=== PATIENT | male | born 1940 | race Caucasian/White ===

== ENCOUNTER → 2019-08-30 | Outpatient (CLI) | payer OTHER ==
[~2019-08-30] VITALS: Ht 175.3 cm; Wt 86.2 kg
[~2019-08-30] MED LIST: ASPIRIN81 M2 PO; TIMOLOL GL0.5 %/5 M1 OPHTHALMIC
[2019-08-30 09:46] LABS: ABSOLUTE NEUTROPHILS 2.6 thou/uL (1.4-8.2); BASOPHILS 0.5 % (0.0-2.0); EOSINOPHILS 5.2 % (0.0-3.0); HEMATOCRIT 42.4 % (42.0-52.0); HEMOGLOBIN 14.4 gm/dL (14.0-18.0); MCH 33.1 pg (26.0-34.0); MCHC 33.9 g/dL (28.0-37.0); MCV 97.7 fL (80.0-100.0); MONOCYTES 11.9 % (1.0-8.0); PLATELET COUNT 157 thou/uL (150-400); POLYS 53.4 % (36.0-66.0); RBC 4.34 mil/uL (4.50-6.00); RDW 14.1 % (10.5-14.5); WBC 4.9 thou/uL (4.0-11.0)
[2019-08-30 09:53] LABS: CALCIUM 8.3 mg/dL (8.5-10.1); POTASSIUM 3.7 mmol/L (3.5-5.1)
[2019-08-30 09:59] LABS: TOTAL BILIRUBIN 0.9 mg/dL (0.2-1.0); TOTAL PROTEIN 6.5 g/dL (6.4-8.2)
--- NOTE | 2019-08-30 10:51 | P ---
[facility] [place] [address] PROCEDURE REPORT Name: JACKLYN JOEL SR Room #: REG [facility]#: [id number] Admission: 08/30/19 Attend Phys: Nakul Tanner Discharge: Date of : 42 Report #: [id number] THIS REPORT FOR: cc: Elsie Barroso MD,Nakul Bejarano MD, MD ~ CC: Nakul Barroso MD DATE OF SERVICE: 08/30/2019 PROCEDURE PERFORMED: Colonoscopy with polypectomies. HISTORY OF PRESENT ILLNESS: The patient is a 78-year-old male who presents today for routine screening colonoscopy. Denies any symptoms. Last colonoscopy was approximately 8-10 years ago. No family history of colon cancer. DESCRIPTION OF PROCEDURE: The risks and benefits of the procedure were explained to the patient, those risks including but not limited to bleeding, perforation and the risk of sedation. He understood these risks and gave informed consent. Sedation was given using propofol per Anesthesia. Next, a digital rectal exam was initially performed, which was normal. Next, using a standard Olympus colonoscope, the scope was placed in the patient's anus and advanced under direct vision to the cecum. The overall prep was excellent. In the cecum, there was a 4 mm sessile polyp. This was removed with cold forceps, otherwise normal. The ileocecal valve was normal. The terminal ileum was intubated and normal in appearance. Ascending, transverse and descending colon were normal. Multiple diverticula were noted in the sigmoid colon, no evidence of inflammation. Also noted was an 8 mm pedunculated polyp in the sigmoid colon. This was removed by snare cautery. The rectal mucosa was normal. On retroflexion, small nonbleeding internal hemorrhoids were noted. The scope was then withdrawn and the procedure terminated. The patient tolerated the procedure well. IMPRESSION: 1. Two colonic polyps. 2. Sigmoid diverticulosis. 3. Internal hemorrhoids. 4. Otherwise, normal colonoscopy. RECOMMENDATIONS: 1. Await biopsy results. 2. Consider repeat colonoscopy in [address] [address] PROCEDURE REPORT Name: WISAMJACKLYN Melissa Room #: REG [facility] Marquez#: [id number] Admission: 08/30/19 Attend Phys: Nakul Tanner Discharge: Date of : 42 Report #: [id number] Thank you for allowing me to participate in his care. <ELECTRONICALLY SIGNED> By: Nakul Griggs MD 08/30/19 1051 0858 0906 Nakul Griggs MD /nt
--- NOTE | 2019-08-30 14:31 | EKG ---
[facility] [place] [address] [place] [address] ELECTROCARDIOGRAM REPORT Name: JACKLYN JOEL SR Room #: REG [facility].#: [id number] Admission: 08/30/19 Attend Phys: Nakul Tanner Discharge: Date of : 42 Report #: [id number] THIS REPORT FOR: cc: Elsie Barroso MD, Stany A. MD Couchonnal, Luis F. MD ~ THIS REPORT FOR: //name// [facility] Test Date: 2019-08-30 Test Time: 09:06:07 Pat Name: JACKLYN JOEL Department: Room: Gender: Raw Juice Weigher: RANJAN : 1940 Requested By: Janet Sheikh Order Number: [id number] MD: Lauri Ye Measurements Intervals [place] Rate: 71 P: CT: QRS: -25 QRSD: 112 T: -3 QT: 395 QTc: 430 Interpretive Statements Atrial flutter Borderline intraventricular conduction delay Compared to ECG 06/19/1998 17:22:00 ST (T wave) deviation now present Sinus rhythm no longer present Electronically Signed On 08-30-2019 14:30:59 CDT by Lauri Ye [email or web address] <ELECTRONICALLY SIGNED> By: Lauri Ye MD 08/30/19 1430 09 0906 Lauri Ye MD /EPI
--- NOTE | 2019-09-01 17:15 | PATH ---
[facility] [place] [address] PATHOLOGY RPT PROCEDURE Name: JACKLYN JOEL Room #: REG [facility] Brooklynn.#: [id number] Admission: 08/30/19 Date of : 42 Discharge: Report #: [id number] Path Case #: [id number] [facility] Accession Number: [id number] . 01 Material submitted: . PART A: cecum - POLYP AT CECUM PART B: colon - POLYP AT SIGMOID. Modifiers: sigmoid . 01 Clinical history: . Screening . 02 Diagnosis: A. Polyp, at cecum, endoscopic biopsy: - Tubular adenoma. - Negative for high-grade dysplasia. . B. Polyp, at sigmoid, endoscopic biopsy: - Hyperplastic polyp and lymphoid aggregate. - Negative for dysplasia. (IUV:kacy; 09/01/2019) QMS 09/01/2019 1152 Local . 02 Electronically signed: . Michaelle Valdez MD, Pathologist NPI- [id number] . 01 Gross description: . A. The specimen is received in formalin, labeled "Jacklyn Joel Sr, polyp at cecum" and consists of 3 fragments of pink-thapa tissue measuring 0.2 x 0.2 cm and 0.6 x 0.2 cm which are entirely submitted in A1. . B. The specimen is received in formalin, labeled "Jacklyn Joel Sr, polyp at sigmoid" and consists of 2 segments of thapa-brown tissue measuring 0.8 x 0.3 x 0.1 cm and 0.9 x 0.3 x 0.2 cm which are entirely submitted in B1. (SDY; 08/30/2019) SYU/SYU 08/30/2019 1715 Local . 02 Pathologist provided ICD-10: D12.0, K63.5 . 02 CPT . 434800, 154735 Specimen Comment: A courtesy copy of this report has been sent to [phone] Specimen Comment: [id number] Specimen Comment: Report sent to / [place] [address] PATHOLOGY RPT PROCEDURE Name: JACKLYN JOEL Room #: REG KARLA Zayas#: [id number] Admission: 08/30/19 Date of : 42 Discharge: Report #: [id number] Path Case #: [id number] Performed at: [address], [place], [place] [address] MD Rodríguez Stephen MD Phone: [phone] Performed at: [address] [id number] MD Michaelle Valdez MD Phone: [phone]
== END | disposition home or self-care (01) ==
LOC: GI 06:38
PROVIDERS: Internal Medicine; ATTEND Specialist
DX: Z12.11 Encounter for screening for malignant neoplasm of colon (principal); D12.0 Benign neoplasm of cecum; K57.30 Diverticulosis of large intestine without perforation or abscess without bleeding; K64.8 Other hemorrhoids; Z11.59 Encounter for screening for other viral diseases; Z98.890 Other specified postprocedural states; Z79.899 Other long term (current) drug therapy; Z98.41 Cataract extraction status, right eye; Z98.42 Cataract extraction status, left eye
CPT/HCPCS: 62110; 62900

== ENCOUNTER → 2019-09-11 | Outpatient (CLI) | payer OTHER | LOC: SJCVCIMAG 10:46 → SJCVC 13:45 → SJCVCIMAG 13:45 | PROVIDERS: ATTEND Internal Medicine | DX: I07.1 Rheumatic tricuspid insufficiency (principal); I48.92 Unspecified atrial flutter ==

== ENCOUNTER → 2019-09-14 | Outpatient (CLI) | payer OTHER | LOC: SJCVCIMAG 06:48 | PROVIDERS: ATTEND Internal Medicine | DX: I48.91 Unspecified atrial fibrillation (principal); I48.92 Unspecified atrial flutter ==

== ENCOUNTER → 2019-09-29 | Outpatient (CLI) | payer OTHER ==
[~2019-09-29] MED LIST changes: +ELIQUIS5 MG PO; +PACERONE 200 M200 M1 PO
== END ==
LOC: SJCVC 10:26
PROVIDERS: ATTEND Internal Medicine
DX: R94.31 Abnormal electrocardiogram [ECG] [EKG] (principal); I48.3 Typical atrial flutter; I44.39 Other atrioventricular block; Z79.899 Other long term (current) drug therapy

== ENCOUNTER 2019-10-03 11:16 | Observation (INO) | payer OTHER ==
[~2019-10-03] VITALS: Ht 172.7 cm; Wt 86.2 kg
[~2019-10-03 11:16] MED LIST changes: -ELIQUIS5 MG PO; -PACERONE 200 M200 M1 PO
[2019-10-03 11:21] VITALS: BP 111/77
[2019-10-03] MEDS ORDERED: ELIQUIS5 MG PO (11:25)
[2019-10-03 12:28] LABS: ABSOLUTE NEUTROPHILS 2.2 thou/uL (1.4-8.2); BASOPHILS 0.4 % (0.0-2.0); HEMATOCRIT 41.9 % (42.0-52.0); HEMOGLOBIN 14.3 gm/dL (14.0-18.0); LYMPHOCYTES 34.5 % (24.0-44.0); MCH 32.9 pg (26.0-34.0); MCV 96.8 fL (80.0-100.0); MONOCYTES 9.4 % (1.0-8.0); PLATELET COUNT 159 thou/uL (150-400); POLYS 51.7 % (36.0-66.0); RBC 4.33 mil/uL (4.50-6.00); RDW 13.7 % (10.5-14.5); WBC 4.2 thou/uL (4.0-11.0)
[2019-10-03 12:38] LABS: ANION GAP 7 mmol/L (7-16); BUN 14 mg/dL (7-18); CALCIUM 8.3 mg/dL (8.5-10.1); CHLORIDE 105 mmol/L (98-107); CO2 26 mmol/L (21-32); CREATININE 0.9 mg/dL (0.7-1.3); GLUCOSE 91 mg/dL (74-106); POTASSIUM 4.3 mmol/L (3.5-5.1); SODIUM 138 mmol/L (136-145)
[2019-10-03 12:48] LABS: ALBUMIN 3.4 g/dL (3.4-5.0); SGOT 23 U/L (15-37); SGPT 23 U/L (30-65); TOTAL BILIRUBIN 0.8 mg/dL (0.2-1.0); TOTAL PROTEIN 6.9 g/dL (6.4-8.2); TROPONIN-I <0.06 ng/mL (<0.06)
[2019-10-03 13:54] VITALS: BP 111/76
[2019-10-03 14:12] VITALS: BP 103/77
[2019-10-03 15:00] VITALS: BP 138/44
--- NOTE | 2019-10-03 15:40 | EKG ---
[facility] [place] [address] ELECTROCARDIOGRAM REPORT Name: JACKLYN JOEL Room #: 214-P ADM IN M.R.#: [id number] Admission: 10/03/19 Attend Phys: Ata Hernandez Discharge: Date of : 42 Report #: [id number] THIS REPORT FOR: cc: Elsie Barroso MD, Stany A. MD Couchonnal, Luis F. 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
--- NOTE | 2019-10-03 16:04 | NUR ---
ARRIVED FROM ED VIA W/C, PLEASANT, ALERT AND ORIENTED X4, VSS AND AFLUTTER ON THE MONITOR. AMIO INFUSING AT 1MG/HR PER ORDERS. ADMISION COMPLETED AND WILL CONTINUE WITH POC.
[2019-10-03 19:35] VITALS: BP 105/81
[2019-10-04] VITALS (10 sets, daily range): BP systolic 108–138; BP diastolic 68–95
--- NOTE | 2019-10-04 04:57 | NUR ---
SLEPT MOST OF SHIFT. UP AD DANUTA TO BATHROOM VOIDING WITHOUT PROBLEMS. NPO PAST MN FOR AM CARDIOVERSION. MAINTAIN AMIODERONE GTT THROUGHOUT NOC. TELEMETRY SHOWS AFLUTTER RATE MID 40'S TO 69 DURING SLEEP. WORKING ON GOALS AND PLAN OF CARE FOR NOC. PROGRESSING SLOWLY TOWARDS DISCHARGE GOALS. CONTINUE TO ASSES CLOSELY.
--- NOTE | 2019-10-04 07:55 | EKG ---
[facility] [place] [address] ELECTROCARDIOGRAM REPORT Name: JACKLYN JOEL Room #: 214-P ADM IN M.R.#: [id number] Admission: 10/03/19 Attend Phys: Ata Hernandez Discharge: Date of : 42 Report #: [id number] THIS REPORT FOR: cc: Elsie Barroso MD, Stany A. MD Lundgren,Chon Conley MD [facility] ~ THIS REPORT FOR: //name// [facility] Test Date: 2019-10-04 Test Time: 07:18:52 Pat Name: JACKLYN JOEL Department: Room: 214 P Gender: M Baggage Handler: JEANNINE : 1940 Requested By: Rhea Quinonez Order Number: [id number] MD: Chon Kilgore Measurements Intervals [place] Rate: 62 P: [place]: QRS: 17 QRSD: 91 T: 19 QT: 481 QTc: 489 Interpretive Statements Atrial flutter Compared to ECG 10/03/2019 11:27:48 No significant change was found Electronically Signed On 10-04-2019 7:55:18 CDT by Chon Kilgore [email or web address] <ELECTRONICALLY SIGNED> By: Chon Kilgore MD, [facility] 10/04/19 0755 7 7 Chon Kilgore MD, [facility] /EPI
--- NOTE | 2019-10-04 10:34 | NUR ---
SPIRITUAL CARE CONSULT COMPLETED BY FR. CRISTELA Bolaños
[2019-10-04] MEDS ORDERED: PACERONE 200 M200 M1 PO ×2 (14:02)
--- NOTE | 2019-10-04 15:07 | NUR ---
PT CARE ASSUMED APPROX 0700. ASSESSMENTS CHARTED. PT DENIES PAIN AND SOA. VSS BEFORE AND AFTER PROCEDURE. UP WITH STEADY GAIT. DISCHARGING AT THIS TIME. DISHCARGE EDUCATION DONE WITH PT AND PT'S FAMILY WITH DR ELDER. EDUCATION REINFORCED BY THIS NURSE. PT AND FAMILY BOTH DENY QUESTIONS OR CONCERNS REGARDING POST HOSPITAL CARES AND FOLLOW UP. IV OUT, TELE OFF. PT TO BE ESCORTED OUT TIMELY.
--- NOTE | 2019-10-05 22:04 | D ---
[facility] [place] [address] [place] [address] DISCHARGE SUMMARY Name: JACKLYN JOEL Room #: 214-P [facility] Butch Zayas#: [id number] Admission: 10/03/19 Attend Phys: Ata Hernandez Discharge: 10/04/19 Date of : 42 Report #: [id number] THIS REPORT FOR: cc: Elsie Barroso MD, Stany A. MD Lammoglia, Francisco J. MD ~ THIS REPORT FOR: //name// CC: Ata Barroso DATE OF SERVICE: 10/04/2019 ADMITTING DIAGNOSIS: Symptomatic paroxysmal atrial fibrillation. DISCHARGE DIAGNOSIS: Symptomatic paroxysmal atrial fibrillation. PROCEDURES PERFORMED: 1. Electrical cardioversion. 2. Supervision of conscious sedation. FOLLOWUP: Follow up with Dr. Hernandez in 4 weeks. DISCHARGE MEDICATIONS: 1. Home meds. 2. Amiodarone 200 mg p.o. b.i.d. x 1 week, then q.a.m. BRIEF CLINICAL HISTORY: See history and physical in chart. HOSPITAL COURSE: The patient was admitted to the hospital and was initiated on IV amiodarone protocol. He subsequently did not convert and underwent electrical cardioversion on the next day without complications. This converted him to sinus mechanism. He was allowed to ambulate post-procedure and when recuperated from sedation, he was discharged in stable and improved condition to follow up with the previously stated discharge instructions and medications. <ELECTRONICALLY SIGNED> By: Ata Hernandez MD 10/05/19 2204 1117 1139 Ata Hernandez MD /nt
--- NOTE | 2019-10-05 22:04 | P ---
[facility] [place] [place] [address] PROCEDURE REPORT Name: JACKLYN JOEL Room #: 214-P [facility] Butch Zayas#: [id number] Admission: 10/03/19 Attend Phys: Ata Hernandez Discharge: 10/04/19 Date of : 42 Report #: [id number] THIS REPORT FOR: cc: Elsie Barroso MD,Ata Galvez MD, MD ~ CC: Ata Barroso DATE OF SERVICE: 10/04/2019 INDICATION: This is a 79-year-old male patient with symptomatic atrial fibrillation. PROCEDURES: 1. Electrical cardioversion. 2. Supervision of conscious sedation. BRIEF DESCRIPTION OF PROCEDURE: The patient was brought to the cardiac catheterization prep and hold. AP pads were placed with pressure points accentuated in back pad. Using 2 mg of Versed and 12.5 of Demerol IV push, the patient was sedated during which continuous electrocardiographic and oximetric monitoring performed. One synchronized 200 joule biphasic shock was performed, which converted the patient into sinus mechanism. He was allowed to recover without incident. The patient tolerated the procedure well: There were no complications. <ELECTRONICALLY SIGNED> By: Ata Hernandez MD 10/05/19 2204 1115 1137 Ata Hernandez MD /nt
== END 2019-10-04 15:41 | disposition home or self-care (01) ==
LOC: ER 11:16 → EROBS 14:02 → 2N 14:02
PROVIDERS: Physician Assistant; ADMIT Internal Medicine; ATTEND Internal Medicine
DX: I48.0 Paroxysmal atrial fibrillation (principal); I48.92 Unspecified atrial flutter; D68.59 Other primary thrombophilia; Z79.01 Long term (current) use of anticoagulants; Z79.899 Other long term (current) drug therapy; Z20.828 Contact with and (suspected) exposure to other viral communicable diseases
CPT/HCPCS: 10081

== ENCOUNTER → 2020-07-03 | Outpatient (CLI) | payer OTHER ==
[~2020-07-03] MED LIST changes: +ELIQUIS5 MG PO; +PACERONE 200 M200 M1 PO
== END ==
LOC: SJCVC 09:26
PROVIDERS: ATTEND Internal Medicine
DX: R94.31 Abnormal electrocardiogram [ECG] [EKG] (principal); I44.0 Atrioventricular block, first degree; I45.10 Unspecified right bundle-branch block; R00.1 Bradycardia, unspecified; R42 Dizziness and giddiness; I48.0 Paroxysmal atrial fibrillation; E78.5 Hyperlipidemia, unspecified; Z79.899 Other long term (current) drug therapy; Z72.89 Other problems related to lifestyle

== ENCOUNTER → 2020-07-10 | Outpatient (CLI) | payer OTHER ==
[2020-07-10 13:09] VITALS: BP 137/73
--- NOTE | 2020-07-11 16:48 | LINQ ---
[facility] [place] [address] LINQ PROCEDURE REPORT Name: JOELJACKLYN Torres Room #: REG Ashkan Zayas#: [id number] Admission: 07/10/20 Attend Phys: Ata Hernandez Discharge: Date of : 42 Report #: [id number] THIS REPORT FOR: cc: Elsie Barroso MD, Stany A. MD Lammoglia, Francisco J. MD ~ APPROVED REPORT Study performed: 07/10/2020 12:28:35 Patient Status: Out-Patient Room #: Event Personnel: Dr. Ata Hernandez Indications: AFIB palpitations The patient is a 79 year-old male with a history of Atrial Fibrillation. Conscious Sedation Start time: 12:20 End Time: 12:32 7ml of 2% Lido was used. Implanted Devices: MEDTRONIC REVEAL LINQ -LNQ11- SN:[id number] Procedure The patient underwent informed consent. We discussed the details of the procedure including the risks, which include, but not limited to bleeding, infection, vascular damage, cardiac perforation, and pneumothorax. After informed consent was obtained the patient was brought to the cardiac catheterization laboratory prepped and hold. The left chest was prepped and draped in usual sterile manner. Using 1% lidocaine and a 25-gauge needle a small wheal was raised at the site of incision. Utilizing a 27-gauge spinal needle the subcutaneous tract was anesthetized without complications. Using a 11 blade a small incision was made. With sharp and blunt dissection was then utilized to create a tract along the anesthetized region. Utilizing the enclosed deployment tool the device was deployed without difficulty. P waves were checked and were satisfactory. Subcutaneous tissue was then closed with 2 simple interrupted sutures obliterating the tract. The skin was closed by a 3-0 subcuticular absorbable sutures. Steri-Strips 4 x 4 OpSite were utilized. No complications were noted patient tolerated procedure well [address] [address] [place] [address] LINQ PROCEDURE REPORT Name: JACKLYN JOEL Room #: REG [facility]#: [id number] Admission: 07/10/20 Attend Phys: Ata Benites Discharge: Date of : 42 Report #: [id number] Complications The patient tolerated the procedure well and there were no complications associated with the procedure. Findings Specimens Removed: N/A Conclusion 1. Successful insertion of a Medtronic Linq implantable loop recorder Recommendations 1. Routine postimplantation protocol <ELECTRONICALLY SIGNED> By: Ata Hernandez MD 07/11/20 1648 47 47 Ata Hernandez MD /INF
== END | disposition home or self-care (01) ==
LOC: CATH 07:45
PROVIDERS: ATTEND Internal Medicine
DX: I48.91 Unspecified atrial fibrillation (principal); R00.2 Palpitations; I48.92 Unspecified atrial flutter; Z98.890 Other specified postprocedural states; Z79.899 Other long term (current) drug therapy; Z20.822 Contact with and (suspected) exposure to COVID-19; Z79.01 Long term (current) use of anticoagulants

== ENCOUNTER → 2020-10-02 | Outpatient (CLI) | payer OTHER | LOC: SJCVC 09:12 | PROVIDERS: ATTEND Internal Medicine | DX: R55 Syncope and collapse (principal); I48.0 Paroxysmal atrial fibrillation; R00.1 Bradycardia, unspecified; R42 Dizziness and giddiness; Z79.899 Other long term (current) drug therapy ==

== ENCOUNTER 2020-10-07 09:11 | Observation (INO) | payer OTHER ==
[~2020-10-07] VITALS: Ht 172.7 cm; Wt 74.4 kg
[2020-10-07 09:41] VITALS: BP 137/67
[2020-10-07 10:02] LABS: ABSOLUTE NEUTROPHILS 2.7 thou/uL (1.4-8.2); BASOPHILS 0.4 % (0.0-2.0); EOSINOPHILS 2.4 % (0.0-3.0); HEMATOCRIT 45.6 % (42.0-52.0); HEMOGLOBIN 15.3 gm/dL (14.0-18.0); LYMPHOCYTES 32.6 % (24.0-44.0); MCH 33.5 pg (26.0-34.0); MCHC 33.6 g/dL (28.0-37.0); MCV 99.8 fL (80.0-100.0); MONOCYTES 9.2 % (1.0-8.0); PLATELET COUNT 184 thou/uL (150-400); POLYS 55.4 % (36.0-66.0); RBC 4.57 mil/uL (4.50-6.00); RDW 14.1 % (10.5-14.5); WBC 4.9 thou/uL (4.0-11.0)
[2020-10-07 10:08] LABS: CALCIUM 8.7 mg/dL (8.5-10.1); CREATININE 1.2 mg/dL (0.7-1.3); POTASSIUM 3.6 mmol/L (3.5-5.1)
--- NOTE | 2020-10-07 17:09 | NUR ---
PT ADMIT TO CCU APPROX 1600 FROM EMERGENCY ROOM TECHNICIAN. PACEMAKER PRESENT AT LEFT CHEST. DRESSING C/D/I. NO C/O PAIN/SOB. PT A-PACED ON TELE. PT HAS BEEN EDUCATED ON BODY POSITIONING AND SLING USAGE. PT IS HYPERTENSIVE, PROVIDER WAS ALERTED VIA [employer] TEXT, NO NEW ORDERS GIVEN. PT AND FAMILY HAVE BEEN THOUROUGHLY UPDATED AND EDUCATED ON PT CONDITION AND POC. PT PROGRESSING TOWARDS POC.
[2020-10-07 20:15] VITALS: BP 188/100
[2020-10-08 04:45] VITALS: BP 179/98
[2020-10-08 08:00] VITALS: BP 146/68
[2020-10-08 11:45] VITALS: BP 174/98
[2020-10-08 15:29] VITALS: BP 174/98
--- NOTE | 2020-10-08 16:05 | NUR ---
assumed patient care at 0700. left chest pacemaker side no drainage. a paced on monitor. dc instruction given. dc to home now.
--- NOTE | 2020-10-14 14:11 | CATHLAB ---
[facility] [address] [place] [address] INVASIVE PROCEDURE REPORT Name: JACKLYN JOEL Room #: 218-P [facility] Butch Zayas#: [id number] Admission: 10/07/20 Attend Phys: Ata Hernandez Discharge: 10/08/20 Date of : 42 Report #: [id number] THIS REPORT FOR: cc: Elsie Barroso MD, Stany A. MD Lammoglia, Francisco J. MD ~ APPROVED REPORT Study performed: 10/07/2020 12:07:05 Patient Status: Out-Patient Room #: Event Personnel: Ata Hernandez MD Exam: Insertion of Dual Chamber Permanent Pacemaker Indications: Sick Sinus Syndrome/Tachy Enrique Syndrome The patient is a 80 year-old male with a history of Symptomatic Bradycardia, Sick Sinus Syndrome. Implanted Devices: Medtronic Angela S DR LILLIAN Antonio ; Model #W3DR01 ; Serial # [id number] ; Expires 11/19/2021 RA Lead: Model #5076-52 ; Serial # [id number] ; Expires 08/13/2022 RV Lead: Model #5076-58 ; Serial # [id number] Procedure The patient underwent informed consent. We discussed the details of the procedure including the risks, which include, but not limited to bleeding, infection, vascular damage, cardiac perforation, and pneumothorax. He understood these risks and was willing to proceed. As such, he was brought to the EP/Cardiac Catheterization laboratory in a fasting and sedated state and prepped and draped in a The patient was brought to the EP/Cardiac Catheterization laboratory and the left chest and shoulder were prepped and draped in a sterile manner. During this case, Fluoroscopy and no contrast were used for imaging. IV conscious sedation was used throughout procedure with appropriate monitoring and was performed in the presence of a registered nurse who was an independent trained observer other than the physician performing the procedure. The left subclavian region was infiltrated with 2% Lidocaine subcutaneous anesthesia. A transverse incision was made in the left upper chest cavity. The subcutaneous pocket was formed via blunt dissection. Percutaneous venous access was achieved and an introducer sheath was inserted into [address] [address] INVASIVE PROCEDURE REPORT Name: JACKLYN JOEL Room #: 218-P DIS IN [facility].#: [id number] Admission: 10/07/20 Attend Phys: Ata Benites Discharge: 10/08/20 Date of : 42 Report #: [id number] the left Subclavian vein. Sheaths were positions using the modified Seldinger technique Through the introducer sheaths the atrial and ventricular lead wires were positioned in the right atrial appendage and right ventricular apex respectively. Capturing and sensing thresholds were verified. Electrode Parameters P Wave: 3.8mV R Wave: 9.4mV Atrial Threshold: 0.5V 0.4ms Ventricular Threshold: 0.5V 0.4ms Atrial Resistance: 608 Ventricular Resistance: 779 Dual Chamber The atrial and ventricular leads were then secured using 2.0 ethibond sutures. The subcutaneous pocket was irrigated with ancef antibiotic solution.The atrial and ventricular leads were attached to the appropriate receptacles on the pulse generator and set screws firmly tightened to insure adequate contact and stability. Complications The patient tolerated the procedure well and there were no complications associated with the procedure. Findings Specimens Removed: N/A Conclusion 1. Successful implantation of a Riiid dual-chamber pacer with active-fixation leads, ventricular in the mid interventricular septum and atrial in the right atrial appendage Recommendations 1. Routine post insertion protocol <ELECTRONICALLY SIGNED> By: Ata Hernandez MD 10/14/20 141 10 10 Ata Hernandez MD /INF
== END 2020-10-08 16:20 | disposition home or self-care (01) ==
LOC: CATH 09:11 → 2N 16:02
PROVIDERS: ADMIT Internal Medicine; ATTEND Internal Medicine
DX: I49.5 Sick sinus syndrome (principal); I48.0 Paroxysmal atrial fibrillation; I48.92 Unspecified atrial flutter; R55 Syncope and collapse; Z95.0 Presence of cardiac pacemaker; Z79.01 Long term (current) use of anticoagulants; Z79.82 Long term (current) use of aspirin; Z79.899 Other long term (current) drug therapy

== ENCOUNTER → 2021-01-13 | Outpatient (CLI) | payer OTHER | LOC: SJCVC 09:42 | PROVIDERS: ATTEND Internal Medicine | DX: I49.5 Sick sinus syndrome (principal); E78.5 Hyperlipidemia, unspecified; R42 Dizziness and giddiness; Z79.899 Other long term (current) drug therapy; Z72.89 Other problems related to lifestyle ==